=== PATIENT | female | born 1965 | race African-American/Black ===

== ENCOUNTER 2021-01-15 10:09 | Outpatient (CLI) | payer OTHER ==
--- NOTE | 2021-01-15 11:09 | CT ---
CT ANGIO OF CHEST PERFORMED WITH IV CONTRAST ENHANCEMENT AND 3D RECONSTRUCTIONS: Date: 01/15/2021 HISTORY: Follow-up of aortic aneurysm. COMPARISON: None. FINDINGS: The lungs are clear of any infiltrative process. Calcified granuloma is seen in the left lower lobe s uperior segment. No other pulmonary nodules. No infiltrative process. No significant mediastinal or hilar adenopathy. Fairly good pulmonary artery opacification was obtain ed and there is no CT evidence for pulmonary embolus. The thoracic aorta shows ascending aorta to measure 4.0 cm. The descending thoracic aorta is approxim ately 2.5 cm. No dissection. Visualized liver parenchyma shows no focal abnormalities. Gallbladder has been removed. Right and lef t adrenal glands are normal. IMPRESSION: The ascending aortic measurement is 4.0 cm. No dissection. POS: [facility]
[2021-01-15] MEDS ORDERED: Iopamidol-370 76% 500 ML 1 ML ONE (13:47)
== END 2021-01-15 10:10 | disposition home or self-care (01) ==
LOC: BICCT 10:09
PROVIDERS: ATTEND Family Medicine
DX: I71.2 Thoracic aortic aneurysm, without rupture (principal)
CPT/HCPCS: 71275; Q9967

== ENCOUNTER 2021-02-12 11:27 | Outpatient (CLI) | payer OTHER | END 2021-02-12 11:28 | disposition home or self-care (01) | LOC: MRI 11:27 | PROVIDERS: ATTEND Family Medicine | DX: M54.6 Pain in thoracic spine (principal); H53.2 Diplopia; R42 Dizziness and giddiness | CPT/HCPCS: 70553; 72146 ==